=== PATIENT | male | born 1965 ===

== ENCOUNTER 2018-07-26 16:14 | Emergency (ER) | payer SELFPAY ==
[2018-07-26 16:33] VITALS: O2SAT 98
--- NOTE | 2018-07-26 17:09 | ED PDOC ---
HPI: General Adult <Merlyn Almanza - Last Filed: 07/26/18 17:36> <Wesley Morel - Last Filed: 07/26/18 20:31> Time Seen by Provider: 07/26/18 16:39 Chief Complaint (Nursing): GI Problem Supervising Attending Note - Supervising Attending Note The Documented history was done by the: Physician Turntable Operator, Attending Physician The documented physical exam was done by the: Physician Turntable Operator, Attending Physician The documented procedures were done by the: Physician Turntable Operator, Attending Physician - Attestation: I have personally seen and examined this patient.: Yes I have fully participated in the care of the patient.: Yes I have reviewed all pertinent clinical information, including history, physical exam and plan: Yes <Wesley Morel - Last Filed: 07/26/18 20:31> Past Medical History Vital Signs: Last Vital Signs Temp 36.5 C 07/26/18 16:31 Pulse 80 07/26/18 16:31 Resp 22 07/26/18 16:31 BP 180/90 H 07/26/18 16:31 Pulse Ox 98 07/26/18 16:31 - Medical History PMH: HTN <Merlyn Almanza - Last Filed: 07/26/18 17:36> Reviewed: Historical Data, Nursing Documentation, Vital Signs Vital Signs: Last Vital Signs Temp 97.7 F 07/26/18 16:31 Pulse 77 07/26/18 17:34 Resp 19 07/26/18 17:34 BP 161/99 H 07/26/18 17:34 Pulse Ox 98 07/26/18 17:42 - Surgical History Surgical History: No Surg Hx - Family History Family History: States: No Known Family Hx <Wesley Morel - Last Filed: 07/26/18 20:31> - Home Medications Home Medications: Ambulatory Orders Medication Instructions Recorded Lisinopril/Hydrochlorothiazide 1 each PO DAILY #30 tablet 07/26/18 [Lisinopril-Hctz 20-12.5 mg Tab] Phenyleph/Mineral Oil/Petrolat 1 appl RC DAILY #1 tube 07/26/18 [Hemorrhoidal Ointment] - Allergies Allergies/Adverse Reactions: Allergies Allergy/AdvReac Type Severity Reaction Status Date / Time No Known Allergies Allergy Verified 07/26/18 16:31 Review of Systems ROS Statement: Except As Marked, All Systems Reviewed And Found Negative <Wesley Morel - Last Filed: 07/26/18 20:31> Physical Exam - Reviewed Vital Signs Reviewed: Yes - Physical Exam Appears: Positive for: Well, Non-toxic, No Acute Distress Skin: Positive for: Normal Color, Warm, Dry Eye Exam: Positive for: Normal appearance, EOMI ENT: Positive for: Normal ENT Inspection Neck: Positive for: Supple Cardiovascular/Chest: Positive for: Regular Rate, Rhythm. Negative for: Murmur Respiratory: Positive for: Normal Breath Sounds. Negative for: Crackles, Rales, Rhonchi, Stridor, Wheezing Gastrointestinal/Abdominal: Positive for: Normal Exam, Bowel Sounds, Soft. Negative for: Tenderness Rectal: Positive for: Hemorrhoids (Grade 2-3 internal hemorrhoids with non-flam ed external hemorrhoids). Negative for: Blood Streaked Stool Neurologic/Psych: Positive for: Alert, Oriented <Merlyn Almanza - Last Filed: 07/26/18 17:36> - Reviewed Nursing Documentation Reviewed: Yes <Wesley Morel - Last Filed: 07/26/18 20:31> - ECG O2 Sat by Pulse Oximetry: 98 <Merlyn Almanza - Last Filed: 07/26/18 17:36> Disposition - Patient ED Disposition Is Patient to be Admitted: No - Disposition Disposition: Routine/Home Disposition Time: 17:37 <Merlyn Almanza - Last Filed: 07/26/18 17:36> Counseled Patient/Family Regarding: Studies Performed, Diagnosis, Need For Followup <Wesley Morel - Last Filed: 07/26/18 20:31> - Clinical Impression Clinical Impression: Hemorrhoids, Elevated blood pressure reading - Disposition Referrals: [facility] [Outside] Condition: IMPROVED Additional Instructions: Apply for [facility] and follow up at the [facility] at [address] [place] [address] - Return to the ER for uncontrolled or persistent bleeding Prescriptions: Lisinopril/Hydrochlorothiazide [Lisinopril-Hctz 20-12.5 mg Tab] 1 each PO DAILY #30 tablet Phenyleph/Mineral Oil/Petrolat [Hemorrhoidal Ointment] 1 appl RC DAILY #1 tube Instructions: Hemorrhoids (DC), Hypotension (ED), Hypertension (ED) Forms: [facility] (Grenadian) Print Language: ESTONIAN
[2018-07-26 17:35] VITALS: RESP 19
[2018-07-26 17:53] VITALS: BP 158/92; PULSE 78; TEMP 97.5
== END 2018-07-26 17:54 | disposition home or self-care (01) ==
LOC: H.ER 16:14
DX: K64.9 Unspecified hemorrhoids (principal); I10 Essential (primary) hypertension